=== PATIENT | female | born 1955 | race Caucasian/White ===

== ENCOUNTER 2017-03-04 08:27 | Day surgery (SDC) | payer MEDICARE, OTHER ==
[2017-03-02 14:38] LABS: BASOPHILS 0.4 %; BASOPHILS ABSOLUTE 0.03 10/3/uL (0.0-0.16); EOSINOPHILS 3.6 %; EOSINOPHILS ABSOLUTE 0.25 10/3/uL (0.0-0.53); HEMATOCRIT 36.4 % (36.0-48.0); HEMOGLOBIN 12.1 g/dL (12.0-16.0); IMMATURE GRANULOCYTES 0.3 %; IMMATURE GRANULOCYTES ABSOLUTE 0.02 10/3/uL (0.0-0.11); LYMPHOCYTES 38.6 %; MEAN CORPUS HGB CONC 33.2 g/dL (32.0-36.0); MEAN CORPUSCULAR HEMOGLOB 28.1 pg (26.0-34.0); MEAN CORPUSCULAR VOLUME 84.5 fL (80-100); MEAN PLATELET VOLUME 12.1 fL (9.2-13.0); MONOCYTES 5.6 %; MONOCYTES ABSOLUTE 0.39 10/3/uL (0.21-1.20); NEUTROPHILS 51.5 %; NEUTROPHILS ABSOLUTE 3.61 10/3/uL (2.02-8.40); PLATELET COUNT 237 10/3/uL (150-400); RED CELL COUNT 4.31 10/6/uL (4.0-5.6)
[2017-03-02 14:39] LABS: MANUAL DIFF NO %
[2017-03-02 14:55] LABS: A/G RATIO 0.7 (0.7-1.9); ALBUMIN 3.2 G/DL (3.5-5.0); ALKALINE PHOSPHATASE 123 U/L (45-117); BUN (BLOOD UREA NITROGEN) 16 MG/DL (6-23); CALCIUM, SERUM 9.2 MG/DL (8.5-10.4); CHLORIDE, SERUM 104 MMOL/L (96-112); CO2 (CARBON DIOXIDE) 27 MMOL/L (24-34); CREATININE 0.84 MG/DL (0.55-1.02); GFR AFRICAN AMERICAN 88 ML/MIN (>=60); GFR NON AFRICAN AMERICAN 76 ML/MIN (>=60); GLOBULIN 4.6 G/DL (2.5-4.1); GLUCOSE, SERUM 314 MG/DL (60-99); POTASSIUM, SERUM 3.9 MMOL/L (3.5-5.3); SGOT(AST) 13 U/L (5-40); SGPT(ALT) 23 U/L (5-65); SODIUM, SERUM 140 MMOL/L (135-148); TOTAL BILIRUBIN 0.3 MG/DL (0-1.2); TOTAL PROTEIN 7.8 G/DL (6.0-8.5)
--- NOTE | ~2017-03-04 | OP ---
Record Of Operation [facility] [address] [place]. [address] NAME: LESLI JARRELL : 57 STATUS : [facility]#: [id number] AGE: 61 ADM/REG DATE : 03/04/17 MR#: [id number] REPORT SERV DATE: 03/04/17 DICTATED BY: CARLY PICHARDO DATE: 03/04/17 REPORT STATUS : Draft TRANSCRIBED BY: ROSEMARY DATE: 03/04/17 DATE OF PROCEDURE: PREOPERATIVE DIAGNOSIS: Right breast HER2 positive breast cancer. POSTOPERATIVE DIAGNOSIS: Right breast HER2 positive breast cancer. PROCEDURE: 1. Placement of a chest wall venous port, internal jugular access. 2. Intraoperative fluoroscopy with interpretation. 3. Intraoperative ultrasound for vein access. INDICATION FOR THE PROCEDURE: Ms. Jarrell is a 61-year-old female, who had very significant history of Crohn's disease requiring ostomy. She has been on immune modulators for that Crohn's disease. She was recently diagnosed in my office with a large 4 cm HER2 positive breast cancer in the right upper outer quadrant. She is a candidate for neoadjuvant chemotherapy which is planned and a port will need to be placed. OPERATIVE FINDINGS: After appropriate consent was noted on the chart, the patient was taken to the operating room in supine position. She was placed under monitored anesthesia without complication. The bilateral chest wall and neck were prepped and draped in sterile fashion. A draped ultrasound was placed in the left neck. Left internal jugular vein was noted in its normal anatomic position. It was quite small for the patient's size, but patent. Local anesthetic was infiltrated in the skin and soft tissue overlying the vein, and the vein was accessed with a single pass of the Seldinger needle. The wire would not pass as the vein collapsed, with the patient is breathing. With multiple attempts, I was still unable to get significant passing of the wire through this vein. The left internal jugular access was aborted. The left subclavian access was attempted, I never could get a good flow with the left subclavian vein for access. At this point, I decided to go to the right side, although, this would be our second option as the cancer is on the right side. I do not have other options, so, the right side will be utilized. Ultrasound was placed in the right neck. The right internal jugular vein was large and patent, and should be easily accessed. The skin was locally anesthetized and the vein accessed with a single pass of the Seldinger needle. Nonpulsatile venous appearing blood was noted in the syringe. The wire passed with ease and the needle removed once fluoroscopy noted the wire to be in good position in the vena cava. The wire was secured to the drapes for later use. The port pocket was created by using a #15 blade to make the incision. Bovie cauterization was utilized to make the port pocket. Stay sutures were placed at the 3 o'clock and 9 o'clock position with Prolene. The sutures were secured for later use. An #11 blade was utilized to lengthen the access site in the neck. The tunneling device was utilized to create the new tunnel from the port site to the access site, and the catheter was pulled through. The vein was dilated, placing the dilator and tear-away sheath over the wire with constant movement of the wire the vein was dilated. The dilator and wire were removed from the sheath leaving the sheath in the vein. The catheter was placed into the sheath, the sheath torn away without problem. The catheter was pulled back to the atriocaval junction using fluoroscopy, it was then cut to length, and secured to the port pocket. This was performed with the securing device. The Record Of Operation [facility] [address] [facility] [place]. [address] NAME: LESLI JARRELL : 57 STATUS : [facility] PAT#: [id number] AGE: 61 ADM/REG DATE : 03/04/17 MR#: [id number] REPORT SERV DATE: 03/04/17 DICTATED BY: CARLY PICHARDO DATE: 03/04/17 REPORT STATUS : Draft TRANSCRIBED BY: MODL DATE: 03/04/17 port was noted to aspirate and flush with ease. It was packed with heparinized saline. The port was then secured with two stay sutures and placed in the port pocket. A final shot of fluoroscopy noted the port to be in good position with no kinks or tethering of the line. No obvious sign of any issue. The wound was copiously irrigated with warm saline and hemostasis was achieved. It was then closed in two layers of Monocryl. The komal in the neck was reapproximated with a buried 4-0 suture. The skin was cleansed and dried. Mastisol and Steri-Strips were applied. Telfa and Tegaderm overlaid. The patient was awoken from anesthesia without complication and taken the PACU in stable condition for recovery. All counts were correct at the end of the case. ESTIMATED BLOOD LOSS: 35 mL. COMPLICATIONS: Inability to access usable vein on the left side. JORGE/ROSEMARY Carly Pichardo MD / [id number] CC: MD Jorge Rouse M.D. Bladimir Buckley III, M.D. Richie Gold M.D. [facility]
[~2017-03-04 08:27] MED LIST: ASAB PO; ASAEC PO; BENTYL10 PO; CANASA1SUP PR; DEXILANT PO; DEXILENT PO; KAPIDEX60 MG PO; LOM PO; MYRBETRIQ 25 MG; NITROSTAT0.4 MG SL; NORCO1 TA1 PO; PENTASA500 MG PO; PROTONIX PO; REMICADE IV; TOF25 PO; TOVIAZ4 MG PO; VITAMIN D400 UNI1 PO; VITD PO; VYTORIN 10/40 T1 TAB PO; WELL75 PO; WELLSR100 PO; WELLSR150 PO; ZANTAC150 MG PO
[2017-08-20] MEDS ORDERED: NEUR300 PO (12:08)
[2017-08-20] MEDS ORDERED: ELIQUIS 5 MG TAB5 MG PO (12:09)
[2017-08-20] MEDS ORDERED: CYMBALTA30 PO (12:10)
== END 2017-03-04 16:20 | disposition home or self-care (01) ==
LOC: SDC 08:27
PROVIDERS: Surgery Surgical Oncology
PROC: 0JH63XZ Insertion of Tunneled Vascular Access Device into Chest Subcutaneous Tissue and Fascia, Percutaneous Approach (ICD-10-PCS; principal; 2017-03-04 10:00)
DX: C50.911 Malignant neoplasm of unspecified site of right female breast (principal); K50.90 Crohn's disease, unspecified, without complications; Z98.890 Other specified postprocedural states; G47.33 Obstructive sleep apnea (adult) (pediatric); E11.9 Type 2 diabetes mellitus without complications; F41.9 Anxiety disorder, unspecified; E66.01 Morbid (severe) obesity due to excess calories; Z88.2 Allergy status to sulfonamides; Z87.442 Personal history of urinary calculi
CPT/HCPCS: 71010; 71020; 77001; 80053; 82962; 85025; 93005; A9270-GY; C1751; C1892; J0690; J2250; J3010

== ENCOUNTER 2017-04-24 10:13 | Inpatient (IN) | payer MEDICARE, OTHER ==
--- NOTE | ~2017-04-24 | CN ---
Consultation Report [facility] [address] [place]. [address] NAME: LESLI PERES : 57 STATUS : ADM IN PAT#: [id number] AGE: 61 ADM/REG DATE : 04/24/17 MR#: [id number] REPORT SERV DATE: 04/27/17 DICTATED BY: MATEO SANCHEZ DATE: 04/27/17 REPORT STATUS : Draft TRANSCRIBED BY: ROSEMARY DATE: 04/27/17 PSYCHIATRIC CONSULTATION DATE OF CONSULTATION: 04/27/2017 I reviewed the patient's current and old medical records. HISTORY OF PRESENT ILLNESS: She was admitted with generalized weakness. I was consulted to address depression issues. PAST PSYCHIATRIC HISTORY: She described mild situational depression on and off over the years, which she attributed to a difficult marriage. She is currently worried about her indebtedness, our impractical house, relationship issues with her daughter, and accumulating medical problems. SOCIAL HISTORY: She has been for about five years. She has three children. The child who is closest to her lives about 10 miles away. She has severe financial concerns. She needs help in completing an application for Medicaid. MENTAL STATUS: She was pleasant and cooperative in attitude. She spoke freely about her issues. Her mood was anxious and dysphoric. Her affect was full and appropriate. Her thinking was logical. She had no delusions. She had no hallucinations. She was oriented to time, place, and person. She displayed good recent and remote memory. DIAGNOSIS: Depressive disorder, not otherwise specified. There appears to be a major reactive element in her depression. RECOMMENDATIONS: I agree with Cymbalta 30 mg p.o. daily. I will request help from case management rn and/or delinquency prevention social worker to address some of her financial and housing concerns and perhaps to help her with her application for Medicaid assistance. I will sign off. ALYSE/ROSEMARY Mateo Sanchez M.D. / [id number] CC: MD Jorge Blackburn II, M.D.
--- NOTE | ~2017-04-24 | CN ---
Consultation Report [facility] [address] [place]. [address] NAME: LESIL PERES : 57 STATUS : ADM IN PAT#: [id number] AGE: 61 ADM/REG DATE : 04/24/17 MR#: [id number] REPORT SERV DATE: 04/28/17 DICTATED BY: JEROD NEIL DATE: 04/28/17 REPORT STATUS : Draft TRANSCRIBED BY: MODL DATE: 04/28/17 CRITICAL CARE CONSULT DATE OF CONSULTATION: 04/28/2017 HISTORY OF PRESENT ILLNESS: The patient is a 61-year-old white female who was admitted to the hospital for generalized weakness, failure to thrive. She started recent treatment for breast cancer with chemotherapy agents and antibody agents. The patient has had a port placed within the past few days in the right internal jugular vein. Tonight, she became somewhat short of breath and hypotensive. A stat CTA was done to rule out dissection and pericardial effusion and instead revealed bilateral pulmonary emboli, a large nonocclusive, in a saddle position. Her saturation had dropped. Her heart rate increased and blood pressures in the 70s. She was transferred to CCU. She had been started on heparin just about an hour ago. I was asked to see her. When I arrived, the patient was awake and responsive. Pale in appearance. However, she was short of breath. Blood pressure was 70/60, pulse rate was 112 to 118. She was getting IV volume and saline. The CTA revealed the followin. It had opacified pulmonary arteries and veins, large burden of acute pulmonary emboli with nonobstructive saddle embolus at the main pulmonary artery bifurcation, near obstructing thrombus in the right main descending pulmonary artery extending into the lobar and segmental pulmonary arteries. 2. Nonobstructing lobar and segmental pulmonary emboli at right upper lobe. 3. Nonobstructing thrombus, proximal right middle lobe pulmonary artery. 4. Nonobstructing pulmonary emboli, left descending pulmonary artery extending several segmental pulmonary arteries. No significant blood identified in the left upper lobe. Normal caliber and contour thoracic aortic node dissection, aneurysm, no mediastinal hemorrhage or abnormal fluid, no mediastinal hilar or axillary supraclavicular adenopathy. No pericardial effusion. There is evidence of mild right ventricular dilatation, no leftward bowing of the septum, no enlargement of pulmonary artery. No chest wall mass. No suspicious bone lesion. Lung windows show no suspicious pulmonary nodules, focal infiltrate, mediastinum, or pneumothorax. No endobronchial lesions. Limited images through upper abdomen show unremarkable visualized portions of upper liver spleen, upper pancreas, upper adrenal glands, large gallstone or gallbladder, no gallbladder inflammatory changes. The patient had a brain CT without contrast on 04/24/2017 which demonstrated no acute infarct or hemorrhage, mild atrophy, and chronic white matter gliosis. The patient's past medical history is significant for recent diagnosis of QNG-5-orkexiaz breast cancer started by Fabian, chemotherapy. Type 2 diabetes mellitus, Crohn disease, rectovaginal fistula, colostomy due to rectovaginal fistula, significant for colostomy, and past surgical history is significant for scheduled to have breast cancer surgery once her chemotherapy is complete. She is allergic to Benadryl sulfa. HOME MEDICATIONS: Include Dexilant 60 mg with breakfast, Bentyl 10 mg four times 0 day, Lomotil four times a day, metformin 500 twice daily, Neulasta 6 mg subcu every 21 days, Consultation Report [address] [address] NAME: LESLI PERES : 57 STATUS : ADM IN PAT#: [id number] AGE: 61 ADM/REG DATE : 04/24/17 MR#: [id number] REPORT SERV DATE: 04/28/17 DICTATED BY: JEROD NEIL DATE: 04/28/17 REPORT STATUS : Draft TRANSCRIBED BY: MODDiana DATE: 04/28/17 Compazine 10 mg q.6h p.r.n. for nausea, Zantac 150 twice a day, and pertuzumab per Dr. Larson. SOCIAL HISTORY: No use of alcohol, tobacco, or illicit substances. FAMILY HISTORY: Positive for sister with breast cancer, at 58. Genetic testing for breast cancer was negative in the patient. PHYSICAL EXAMINATION: GENERAL: On examination, patient is pale in appearance, elderly female, looking older than stated age. She is awake, alert, and oriented. HEENT: Head is normocephalic. Sclerae and conjunctivae clear. Oral mucosa appears to be normal. No JVD is reported in the right internal jugular vein with the port on the chest wall. CARDIAC EXAM: S1, S2. Tachycardic. No murmurs. ABDOMEN: Soft and nontender. No masses. Colostomy is in place. EXTREMITIES: Slight edema. No clubbing. NEUROLOGIC: Cranial nerves 2 through 12 are intact. Deep tendon reflexes appear to be normal. The patient continues to be hypotensive and I have reviewed with her the indications, complications, possible side effects including hemorrhage into the brain, and treatment with tPA. She meets all criteria for treatment of tPA, the main one being sudden hypoxemia requiring increased amounts of oxygen and hypotension with the significant tachycardia. I will proceed with this. The patient has had a hospital psychiatric evaluation for depression and was placed on Cymbalta. I am attempting to contact her family to inform them of the same. EKG shows sinus tachycardia. She did have an elevated troponin of 1.59, CPK was 130. IMPRESSION: Saddle pulmonary embolism, not totally occlusive, with marked hypotension and tachycardia. The patient needs indication for tPA administration. Risks and benefits have been explained and understood and accepted by the patient. Attempts were made to reach her family. This has been approximately 45 minutes of critical care time. HARRISON/ROSEMARY Jerod Neil M.D. / [id number] Consultation Report [address] [address] NAME: LESLI PERES : 57 STATUS : ADM IN [facility]#: [id number] AGE: 61 ADM/REG DATE : 04/24/17 MR#: [id number] REPORT SERV DATE: 04/28/17 DICTATED BY: JEROD NEIL DATE: 04/28/17 REPORT STATUS : Draft TRANSCRIBED BY: MODL DATE: 04/28/17 CC: Loc Duncan MD
--- NOTE | ~2017-04-24 | DS ---
Discharge Summary [facility] [address] [place]. [address] NAME: LESLI PERES : 57 STATUS : ADM IN PAT#: [id number] AGE: 61 ADM/REG DATE : 04/24/17 MR#: [id number] REPORT SERV DATE: 05/01/17 DICTATED BY: LEONEL JENSEN DATE: 05/01/17 REPORT STATUS : Draft TRANSCRIBED BY: MODDiana DATE: 05/01/17 ADMISSION DATE: 04/24/2017 DISCHARGE DATE: 05/01/2017 DISCHARGE DIAGNOSES: 1. Bilateral massive pulmonary embolisms. 2. Uncontrolled type 2 diabetes mellitus. 3. Demand ischemia, now resolved. 4. Generalized debility. 5. Breast cancer. 6. Gastroesophageal reflux. 7. Chronic pain syndrome. CONSULTANTS DURING THIS HOSPITALIZATION: 1. Dr. Huseyin Larson of Hematology Oncology. 2. Critical Care Medicine. INVASIVE PROCEDURES DONE DURING THIS HOSPITALIZATION: None. BRIEF HISTORY OF PRESENT ILLNESS: The patient is a 61-year-old female, presented initially to [facility] Emergency Room for generalized weakness and failure to thrive. Please refer to my admitting H and P done on 04/24/2017. HOSPITAL COURSE: After being admitted to the hospital, this patient apparently was doing well and then suddenly had massive bilateral pulmonary embolisms with elevated troponin. Cardiology saw the patient in consultation, recommended a CTA. CTA was done, which showed massive pulmonary embolism. The patient became hypotensive, had to be transferred to the intensive care unit. Please refer to interim summary dictated by Dr. Mino Carlos after transfer. This patient has remained stable. We have weaned her off her oxygen. She is currently on Eliquis for bilateral pulmonary embolisms. Her chemo will be suspended while she is in rehab. All other parameters remained stable and she is ready for rehab. DISCHARGE DISPOSITION: To rehab. DISCHARGE ACTIVITY: Per facility. DISCHARGE DIET: Low sodium, 1800-calorie [employer] diet. DISCHARGE MEDICATIONS: Bentyl 10 mg four times daily; Eliquis 10 mg twice daily for seven days and then 5 mg twice daily; Dexilant 60 mg p.o. before breakfast; metformin 500 mg twice daily; pertuzumab per Dr. Larson after rehab; Zantac 150 mg twice daily; Neulasta 6 mg subcu every [address] Larson to be suspended while in rehab; Decadron 8 mg p.o. b.i.d., three days before chemotherapy to be suspended until rehab is complete. DISCHARGE FOLLOWUP: With Dr. Huseyin Larson post rehab, with Dr. Jorge Jacques post rehab. Discharge Summary [place] [address] [place] [address] NAME: LESLI PERES : 57 STATUS : ADM IN PAT#: [id number] AGE: 61 ADM/REG DATE : 04/24/17 MR#: [id number] REPORT SERV DATE: 05/01/17 DICTATED BY: LEONEL JENSEN DATE: 05/01/17 REPORT STATUS : Draft TRANSCRIBED BY: ROSEMARY DATE: 05/01/17 More than 30 minutes spent planning this patient's discharge, reconciling medications, discussing hospital care with the patient as well as with Dr. Carlton over the phone, and documenting this discharge. DICTATED BY: Bladimir aDley/ROSEMARY Leonel Jensen M.D. / [id number] CC: Bladimir Daley M.D. Bertrand Marquess Anz III, M.D.
--- NOTE | ~2017-04-24 | CN ---
Consultation Report [facility] [address] [place]. [address] NAME: LESLI PERES : 57 STATUS : ADM IN PAT#: [id number] AGE: 61 ADM/REG DATE : 04/24/17 MR#: [id number] REPORT SERV DATE: 04/28/17 DICTATED BY: KADIE SHELTON DATE: 04/27/17 REPORT STATUS : Draft TRANSCRIBED BY: MODDiana DATE: 04/27/17 CARDIOLOGY CONSULTATION DATE OF CONSULTATION: HISTORY OF PRESENT ILLNESS: This 61-year-old white female with breast cancer on chemotherapy by Dr. Larson had failure to thrive and weakness for which she was brought to the emergency room. She lives alone in a three-claudia home and is looked in on by some neighbors on occasion. While here, she has developed some chest discomfort that is worsened by deep breath and lying flat. She has had no hemoptysis, chills, or fever and denies any leg pain. Other problems include Crohn disease, for which, she has had a colostomy placed. She has been overweight for many years. She is a type 2 diabetic. Previous surgeries besides the colostomy are negative. She is intolerant to Benadryl and sulfa drugs. HOME MEDICATIONS: Have included cephalexin antibiotic therapy, dexamethasone, Dexilant, Bentyl, Lomotil, metformin, Compazine, and Zantac. She gets Neulasta 6 mg subcu every 21 days. She does not use alcohol, tobacco, or illicit substances. FAMILY HISTORY: Positive for breast cancer. At the present time, she is not short of breath but does complain of chest discomfort, a bit worsened on deep breath. She is not syncopal or near syncopal, but apparently, had a vagal reaction earlier in the day. Her EKG shows mild sinus tachycardia with nonspecific ST-T wave change. Troponin was initially less than 0.02 but is now 1.59, BUN is 27, creatinine 1.13. Blood sugar at random is 150 mg%. White blood cell count 5900, hematocrit 28%, and platelet count 220,000, on chemotherapy. PHYSICAL EXAMINATION: VITAL SIGNS: Blood pressure 130/70 without palpable paradox. HEENT: Head is normocephalic except for alopecia and absence of eyebrows, probably from chemotherapy. NOSE: No epistaxis. SKIN: Otherwise clear of ulceration. NECK: Supple. No jugular venous distention was seen. LUNGS: Relatively clear. I hear no wheezes, rales, or rhonchi. HEART: Regular rhythm. Normal S1, S2. I do not hear an S3 gallop. ABDOMEN: Obese and nontender. Colostomy bag is present in the left lower quadrant. EXTREMITIES: Had no clubbing, edema, or cyanosis. NEUROLOGIC EXAM: Intact. She is oriented to time, place, and person. CLINICAL IMPRESSION: 1. Pleuritic chest pain - rule out pericardial effusion or pulmonary embolism; mild troponin elevation without ST elevation on EKG such that ischemic cardiac event cannot be excluded. 2. Cancer of the breast - on chemotherapy. Consultation Report [address] [place]. [address] NAME: LESLI PERES : 57 STATUS : ADM IN [facility]#: [id number] AGE: 61 ADM/REG DATE : 04/24/17 MR#: [id number] REPORT SERV DATE: 04/28/17 DICTATED BY: KADIE SHELTON DATE: 04/27/17 REPORT STATUS : Draft TRANSCRIBED BY: ROSEMARY DATE: 04/27/17 3. History of Crohn disease with colostomy. 4. History of type 2 diabetes mellitus. 5. Depression - has seen Psychiatry. RECOMMENDATIONS: 1. We will check a spiral CT of the chest with contrast tonight to look at the pericardium, rule out pulmonary embolism or dissection of the aorta. 2. Echocardiogram with Doppler. 3. If the above proved to be negative, she might be a candidate for cardiac catheterization and possible PCI should she wish to pursue that approach. Further recommendations to follow results of above studies. 4. We will hold the heparin until dissection and pericardial effusion have been ruled out by CTA. RB/ROSEMARY Kadie Shelton M.D. / [id number] CC: MD Jorge Blackburn II, M.D.
--- NOTE | ~2017-04-24 | IDS ---
Interim Discharge Summary [facility] [address] [place]. [address] NAME: LESLI PERES : 57 STATUS : ADM IN PAT#: [id number] AGE: 61 ADM/REG DATE : 04/24/17 MR#: [id number] REPORT SERV DATE: 04/29/17 DICTATED BY: WILI CARLOS IV DATE: 04/29/17 REPORT STATUS : Draft TRANSCRIBED BY: ROSEMARY DATE: 04/29/17 ADMISSION DATE: 04/24/2017 DISCHARGE DATE: DATE OF TRANSFER TO THE ICU: 04/28/2017. DATE OF TRANSFER BACK TO THE FLOOR: 04/29/2017. ADMITTING DIAGNOSES: 1. Large-volume pulmonary embolism, clinically improved. 2. Breast cancer. 3. Electrolyte abnormalities being corrected. 4. Diabetes mellitus with consult to ems educator with resumption of metformin and insulin sliding scale. 5. Thrombocytopenia, heparin-induced thrombocytopenia panel sent, though this may be chemotherapy related. 6. Iron deficiency, started on iron. 7. Crohn disease with colostomy. CONSULTANTS: No additional consultants after transfer to the ICU. PROCEDURES: The patient underwent an ultrasound of the bilateral lower extremities on 04/28/2017 demonstrating left popliteal clot. The patient underwent echocardiogram on 04/28/2017 demonstrating ejection fraction of 50% with right ventricular enlargement and general hypokinesis with [id number] tricuspid regurgitation and estimated right ventricular systolic pressure of 31. MEDICATIONS: Include Bentyl 10 mg with meals and at bedtime, Cymbalta 30 mg daily, Neurontin 100 mg three times a day, level 3 insulin sliding scale, Protonix 40 mg daily, multivitamin daily, iron 300 mg daily, and Eliquis 10 mg twice a day. HOSPITAL COURSE: The patient was transferred from the hospitalist service to the ICU on 04/28/[address]ogram demonstrated large-volume pulmonary embolism. The patient was hypoxemic and mildly hypotensive at that time. The patient never required vasopressor therapy. She was given tPA because of her mixed disease with clinical improvement. The patient was subsequently placed on a heparin drip which was continued until she was transitioned to Eliquis today. The patient had rapid improvement and currently is not requiring supplemental oxygen and is hemodynamically stable. She has noted marked clinical improvement with less short of breath and resolution of her previous chest discomfort. The patient had multiple electrolyte abnormalities, which are being corrected to include potassium, magnesium, and phos. The patient had marked hyperglycemia with an elevated hemoglobin A1c. She was restarted on metformin, though will likely need medication adjustments. She is on insulin sliding scale. We have asked ems educator to see the patient. The patient will remain on Cymbalta for her depression. She did have thrombocytopenia with HIT panel pending, though this may be chemotherapy related. I felt that she was stable for transfer back to the floor. We will ask the Hospitalist Service to Interim Discharge Summary [address] [place]. [address] NAME: LESLI PERES : 57 STATUS : ADM IN PAT#: [id number] AGE: 61 ADM/REG DATE : 04/24/17 MR#: [id number] REPORT SERV DATE: 04/29/17 DICTATED BY: WILI CARLOS IV DATE: 04/29/17 REPORT STATUS : Draft TRANSCRIBED BY: ROSEMARY DATE: 04/29/17 resume primary responsibility. NICOLE/ROSEMARY Wili Carlos IV, M.D. / [id number] CC: MD Jorge Costa M.D.
--- NOTE | ~2017-04-24 | HP ---
History And Physical [id number] [facility] [place]. [address] NAME: LESLI PERES : 57 STATUS : ADM IN PAT#: [id number] AGE: 61 ADM/REG DATE : 04/24/17 MR#: [id number] REPORT SERV DATE: 04/24/17 DICTATED BY: LEONEL JENSEN DATE: 04/24/17 REPORT STATUS : Draft TRANSCRIBED BY: ROSEMARY DATE: 04/24/17 DATE OF ADMISSION: 04/24/2017 CHIEF COMPLAINT: Weakness. HISTORY OF PRESENT ILLNESS: The patient 61-year-old white female, diagnosed with breast cancer, nonmetastatic, HER2 positive followed by Dr. Marquess Larson on chemotherapy. Recently received chemotherapy round #2 and since then has become progressively weak. Lives in a three-story home. Lives usually upstairs. The kitchen is on the main floor. Then patient actually activated EMS in the middle of the night around 1:45 to 3 o'clock asking that she cannot get to her food. There are multiple social issues where there are family members, but significant issues with having to live with them or having some problems with assistance. This patient says that because she cannot move, she is not able to get out of bed. She felt like she was going to of starvation in her own bed. She has no appetite. She feels that she would be better off if she . She has not thought of any suicide. She denies any chest pain, nausea, vomiting, shortness of breath. She has chronic Crohn disease and has diarrhea and uses multiple antidiarrheal agents for that. She was brought to the emergency room. Workup in the ER was fairly unremarkable, however, because of her social situation and concerns for safety of discharge, she had been referred to the Hospitalist Service for further treatment and evaluation. REVIEW OF SYSTEMS: A 10-point review of systems was otherwise negative. 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 PAST SURGICAL HISTORY: Significant for colostomy. She is scheduled or supposedly to have breast cancer once her chemotherapy is complete. ALLERGIES: BENADRYL AND SULFA. HOME MEDICATIONS: Cephalexin 500 mg every eight hours, dexamethasone 8 mg twice daily for three days prior to starting chemo, Dexilant 60 mg once at breakfast, Bentyl 10 mg four times daily, Lomotil 5 mg four times daily p.r.n., metformin 500 mg twice daily, Neulasta 6 mg subcu every 21 days, Compazine 10 mg q.6 p.r.n. for nausea, Zantac 150 mg twice daily, pertuzumab ongoing per Dr. Larson. SOCIAL HISTORY: No use of alcohol, tobacco, or illicit substances. FAMILY HISTORY: Sister with breast cancer who at the age of 58. Genetic testing for breast cancer in the patient was negative. PHYSICAL EXAMINATION: GENERAL: White female, appears older than the stated age. Lying on the bed, appears to be History And Physical [address] [address] NAME: LESLI PERES : 57 STATUS : ADM IN PAT#: [id number] AGE: 61 ADM/REG DATE : 04/24/17 MR#: [id number] REPORT SERV DATE: 04/24/17 DICTATED BY: LEONEL JENSEN DATE: 04/24/17 REPORT STATUS : Draft TRANSCRIBED BY: ROSEMARY DATE: 04/24/17 in no respiratory distress. She is awake, alert. She is oriented. VITAL SIGNS: Upon arrival to the emergency room, blood pressure was 130/48, temperature was 98.2, pulse is 89, saturation of 98%. HEENT: Head is normocephalic, atraumatic. Pupils are equal, round, and reactive to light. Extraocular muscles are intact. Sclerae anicteric. Conjunctivae are normal. Oropharynx without lesion. Tongue protrudes in midline. Uvula midline. NECK: Supple. No jugular venous distention. No carotid bruits or thyromegaly is appreciated. No lymphadenopathy in the neck is palpable. HEART: Regular rate and rhythm. No murmurs, rubs, or gallops are heard. PMI nondisplaced. LUNGS: Clear to auscultation both anteriorly and posteriorly without rales, rhonchi, wheezing, or consolidation. ABDOMEN: Morbidly obese, soft, nontender, good bowel sounds. EXTREMITIES: Without cyanosis, clubbing, or edema. NEUROLOGIC: Strength is equal and symmetrical in both upper and lower extremities. Deep tendon reflexes are present and normal. LABORATORY DATA: White count is 8.3, hemoglobin of 11.4, hematocrit 32.1, platelet count is 262,000. Sodium 141, potassium 3.1, chloride 108, bicarb 24, BUN 35, creatinine 1.45, glucose of 179. Fingerstick blood glucose was 210. Urinalysis was fairly unremarkable. CPK was 17, troponin was less than 0.02. PT is 15.1, INR 1.2, PTT was 23. Total bilirubin of 0.4, alkaline phosphatase 169, ALT 87, AST 30. Leukocytes and nitrites were negative in the urine. Chest x-ray, no acute disease. EKG, normal sinus rhythm, low voltage, nonspecific T-wave abnormalities. IMPRESSION: 1. Failure to thrive. 2. Debility. 3. Breast cancer with the HER2 positive on active chemo. 4. Type 2 diabetes mellitus. 5. Crohn disease with rectovaginal fistula and colostomy. 6. Colostomy due to #5. PLAN: The patient will be admitted. PT evaluation will be ordered. IV fluids will be given. Case management consultation will be obtained. Home medications have been addressed. I will discontinue metformin at this time as this will add further to the diarrhea. We will start her on a level 2 sliding scale. Hold Lomotil. Start patient on Cymbalta 30 mg once daily. Obtain a psychiatry consultation for further treatment of her depression. Patient remains a full code. NAUN/ROSEMARY Leonel Jensen M.D. / [id number] History And Physical [address] [address] NAME: LESLI PERES : 57 STATUS : ADM IN [facility]#: [id number] AGE: 61 ADM/REG DATE : 04/24/17 MR#: [id number] REPORT SERV DATE: 04/24/17 DICTATED BY: LEONEL JENSEN DATE: 04/24/17 REPORT STATUS : Draft TRANSCRIBED BY: ROSEMARY DATE: 04/24/17 CC: MD Jorge Blackburn II, M.D. Mitchel Larson III, M.D.
[2017-04-24 10:10] LABS: BASOPHILS 0 %; EOSINOPHILS 0 %; HEMOGLOBIN 11.4 g/dL (12.0-16.0); IMMATURE GRANULOCYTES 0.2 %; IMMATURE GRANULOCYTES ABSOLUTE 0.02 10/3/uL (0.0-0.11); LYMPHOCYTES 33.8 %; MEAN CORPUSCULAR HEMOGLOB 29.3 pg (26.0-34.0); MEAN CORPUSCULAR VOLUME 82.5 fL (80-100); MEAN PLATELET VOLUME 10.9 fL (9.2-13.0); MONOCYTES 11.5 %; MONOCYTES ABSOLUTE 0.95 10/3/uL (0.21-1.20); NEUTROPHILS 54.5 %; NEUTROPHILS ABSOLUTE 4.51 10/3/uL (2.02-8.40); PLATELET COUNT 262 10/3/uL (150-400); RBC DISTRIBUTION WIDTH 15.9 % (12.0-16.0); RED CELL COUNT 3.89 10/6/uL (4.0-5.6); WHITE BLOOD CELLS 8.3 10/3/uL (4.5-10.5)
[2017-04-24 10:12] LABS: HEMATOCRIT 32.1 % (36.0-48.0); MANUAL DIFF NO %; MEAN CORPUS HGB CONC 35.5 g/dL (32.0-36.0)
[2017-04-24 10:24] LABS: A/G RATIO 0.9 (0.7-1.9); ALBUMIN 3.4 G/DL (3.5-5.0); CALCIUM, SERUM 9.8 MG/DL (8.5-10.4); CHLORIDE, SERUM 108 MMOL/L (96-112); CO2 (CARBON DIOXIDE) 24 MMOL/L (24-34); GLOBULIN 3.7 G/DL (2.5-4.1); SGOT(AST) 30 U/L (5-40); SGPT(ALT) 87 U/L (5-65); SODIUM, SERUM 141 MMOL/L (135-148); TOTAL BILIRUBIN 0.4 MG/DL (0-1.2); TOTAL PROTEIN 7.1 G/DL (6.0-8.5)
[2017-04-24 10:26] LABS: ALKALINE PHOSPHATASE 169 U/L (45-117); BUN (BLOOD UREA NITROGEN) 35 MG/DL (6-23); CREATININE 1.45 MG/DL (0.55-1.02); GFR AFRICAN AMERICAN 45 ML/MIN (>=60); GFR NON AFRICAN AMERICAN 39 ML/MIN (>=60); GLUCOSE, SERUM 179 MG/DL (60-99); POTASSIUM, SERUM 3.1 MMOL/L (3.5-5.3)
[2017-04-24 10:40] LABS: INTERNATIONAL NORMAL RATI 1.2 UNITS (-); PARTIAL THROMBO TIME 23.6 SEC (22.5-37.2); PROTIME (NOT ORD) 15.1 SEC (12.0-14.5)
[2017-04-24 10:50] LABS: ASCORBIC ACID (UR NOT ORDER) NEG (NEG); BILIRUBIN, URINE NEGATIVE (NEG); CPK 17 U/L (0-200); KETONE, URINE NEGATIVE (NEG); LEUKOCYTE ESTERASE(NOT OR NEG (NEG); NITRITE (URINE) NEG (NEG); TROPONIN I <0.02 NG/ML (<0.05); WBC (NOT ORDERED) (RFLEX) 5 (0-5)
[2017-04-24 10:52] LABS: ER URINALYSIS TAT 0 Hrs 31 Mins
[2017-04-24] MEDS ORDERED: BENTYL10 PO (11:47)
[2017-04-24] MEDS ORDERED: [UNRECOGNIZED DRUG - OTHER] (11:47)
[2017-04-24] MEDS ORDERED: HERCEPTIN (11:48)
[2017-04-24] MEDS ORDERED: GLUCPH PO (11:48)
[2017-04-24] MEDS ORDERED: ZANTAC150 MG PO (11:49)
[2017-04-24] MEDS ORDERED: COMP10B PO (11:51)
[2017-04-24] MEDS ORDERED: K500 PO (11:54)
[2017-04-24] MEDS ORDERED: NEULASTA SC (11:54)
[2017-04-24] MEDS ORDERED: LOM PO (11:54)
[2017-04-24] MEDS ORDERED: KAPIDEX60 MG PO (11:55)
[2017-04-24] MEDS ORDERED: DEX4 PO (11:56)
[2017-04-25 04:57] LABS: BASOPHILS 0 %; EOSINOPHILS 0 %; HEMATOCRIT 27.9 % (36.0-48.0); HEMOGLOBIN 9.7 g/dL (12.0-16.0); IMMATURE GRANULOCYTES 0.2 %; IMMATURE GRANULOCYTES ABSOLUTE 0.01 10/3/uL (0.0-0.11); LYMPHOCYTES 48.4 %; LYMPHOCYTES ABSOLUTE 2.83 10/3/uL (0.67-4.30); MANUAL DIFF NO %; MEAN CORPUS HGB CONC 34.8 g/dL (32.0-36.0); MEAN CORPUSCULAR HEMOGLOB 29.1 pg (26.0-34.0); MEAN CORPUSCULAR VOLUME 83.8 fL (80-100); MEAN PLATELET VOLUME 10.8 fL (9.2-13.0); MONOCYTES 10.3 %; NEUTROPHILS 41.1 %; NEUTROPHILS ABSOLUTE 2.41 10/3/uL (2.02-8.40); PLATELET COUNT 220 10/3/uL (150-400); RBC DISTRIBUTION WIDTH 16.3 % (12.0-16.0); RED CELL COUNT 3.33 10/6/uL (4.0-5.6); WHITE BLOOD CELLS 5.9 10/3/uL (4.5-10.5)
[2017-04-25 05:08] LABS: ALBUMIN 2.9 G/DL (3.5-5.0); CHLORIDE, SERUM 112 MMOL/L (96-112); CO2 (CARBON DIOXIDE) 24 MMOL/L (24-34); CREATININE 1.13 MG/DL (0.55-1.02); GFR AFRICAN AMERICAN 61 ML/MIN (>=60); GFR NON AFRICAN AMERICAN 53 ML/MIN (>=60); GLUCOSE, SERUM 150 MG/DL (60-99); PHOSPHORUS, SERUM 2.9 MG/DL (2.5-4.5); POTASSIUM, SERUM 3.3 MMOL/L (3.5-5.3); SODIUM, SERUM 144 MMOL/L (135-148)
[2017-04-25 05:09] LABS: BUN (BLOOD UREA NITROGEN) 27 MG/DL (6-23); CALCIUM, SERUM 8.7 MG/DL (8.5-10.4)
[2017-04-26 08:12] LABS: BASOPHILS 0 %; EOSINOPHILS 0.4 %; EOSINOPHILS ABSOLUTE 0.02 10/3/uL (0.0-0.53); HEMATOCRIT 29.6 % (36.0-48.0); HEMOGLOBIN 10.1 g/dL (12.0-16.0); LYMPHOCYTES 47.5 %; LYMPHOCYTES ABSOLUTE 2.12 10/3/uL (0.67-4.30); MEAN CORPUS HGB CONC 34.1 g/dL (32.0-36.0); MEAN CORPUSCULAR HEMOGLOB 28.7 pg (26.0-34.0); MEAN CORPUSCULAR VOLUME 84.1 fL (80-100); MEAN PLATELET VOLUME 10.7 fL (9.2-13.0); MONOCYTES 8.3 %; MONOCYTES ABSOLUTE 0.37 10/3/uL (0.21-1.20); NEUTROPHILS 43.8 %; NEUTROPHILS ABSOLUTE 1.95 10/3/uL (2.02-8.40); PLATELET COUNT 222 10/3/uL (150-400); RBC DISTRIBUTION WIDTH 16.3 % (12.0-16.0); RED CELL COUNT 3.52 10/6/uL (4.0-5.6); WHITE BLOOD CELLS 4.5 10/3/uL (4.5-10.5)
[2017-04-26 08:14] LABS: MANUAL DIFF NO %
[2017-04-26 08:56] LABS: A/G RATIO 0.8 (0.7-1.9); ALBUMIN 2.9 G/DL (3.5-5.0); CALCIUM, SERUM 8.9 MG/DL (8.5-10.4); CHLORIDE, SERUM 111 MMOL/L (96-112); CO2 (CARBON DIOXIDE) 23 MMOL/L (24-34); CREATININE 0.85 MG/DL (0.55-1.02); GFR AFRICAN AMERICAN 86 ML/MIN (>=60); GFR NON AFRICAN AMERICAN 74 ML/MIN (>=60); GLOBULIN 3.6 G/DL (2.5-4.1); GLUCOSE, SERUM 151 MG/DL (60-99); POTASSIUM, SERUM 3.1 MMOL/L (3.5-5.3); SGOT(AST) 31 U/L (5-40); SGPT(ALT) 61 U/L (5-65); SODIUM, SERUM 141 MMOL/L (135-148); TOTAL BILIRUBIN 0.3 MG/DL (0-1.2); TOTAL PROTEIN 6.5 G/DL (6.0-8.5)
[2017-04-26 08:57] LABS: ALKALINE PHOSPHATASE 131 U/L (45-117); BUN (BLOOD UREA NITROGEN) 14 MG/DL (6-23); ULTRASENSITIVE TSH 0.852 MCIU/ML (0.358-3.740)
[2017-04-27 06:15] LABS: BUN (BLOOD UREA NITROGEN) 13 MG/DL (6-23); CALCIUM, SERUM 8.6 MG/DL (8.5-10.4); CHLORIDE, SERUM 111 MMOL/L (96-112); CO2 (CARBON DIOXIDE) 26 MMOL/L (24-34); CREATININE 0.89 MG/DL (0.55-1.02); GFR AFRICAN AMERICAN 82 ML/MIN (>=60); GFR NON AFRICAN AMERICAN 70 ML/MIN (>=60); GLUCOSE, SERUM 138 MG/DL (60-99); POTASSIUM, SERUM 3.2 MMOL/L (3.5-5.3); SODIUM, SERUM 142 MMOL/L (135-148)
[2017-04-27 19:05] LABS: TROPONIN I 1.59 NG/ML (<0.05)
[2017-04-27 20:25] LABS: CK-MB 5.3 NG/ML
[2017-04-27 20:26] LABS: CKMB INDEX (NOT ORD) 4.1
[2017-04-28 02:14] LABS: CALCIUM, SERUM 8.5 MG/DL (8.5-10.4); CHLORIDE, SERUM 110 MMOL/L (96-112); CO2 (CARBON DIOXIDE) 23 MMOL/L (24-34); CPK 127 U/L (0-200); CREATININE 1.22 MG/DL (0.55-1.02); GFR AFRICAN AMERICAN 56 ML/MIN (>=60); GFR NON AFRICAN AMERICAN 48 ML/MIN (>=60); SODIUM, SERUM 141 MMOL/L (135-148)
[2017-04-28 02:15] LABS: BUN (BLOOD UREA NITROGEN) 19 MG/DL (6-23); CK-MB 4.6 NG/ML; GLUCOSE, SERUM 235 MG/DL (60-99); POTASSIUM, SERUM 3.9 MMOL/L (3.5-5.3); TROPONIN I 1.42 NG/ML (<0.05)
[2017-04-28 04:21] LABS: HEMOGLOBIN 11.9 g/dL (12.0-16.0)
[2017-04-28 04:22] LABS: HEMATOCRIT 35.1 % (36.0-48.0)
[2017-04-28 08:32] LABS: CK-MB 4.8 NG/ML; CPK 165 U/L (0-200)
[2017-04-28 09:32] LABS: IRON BINDING CAPACITY 252 MCG/DL (225-410); IRON, SERUM 31 MCG/DL (35-150)
[2017-04-29 02:24] LABS: BASOPHILS 0.1 %; BASOPHILS ABSOLUTE 0.01 10/3/uL (0.0-0.16); EOSINOPHILS 2.4 %; EOSINOPHILS ABSOLUTE 0.22 10/3/uL (0.0-0.53); IMMATURE GRANULOCYTES 0.2 %; IMMATURE GRANULOCYTES ABSOLUTE 0.02 10/3/uL (0.0-0.11); LYMPHOCYTES 29.6 %; LYMPHOCYTES ABSOLUTE 2.69 10/3/uL (0.67-4.30); MEAN CORPUS HGB CONC 34.4 g/dL (32.0-36.0); MEAN CORPUSCULAR HEMOGLOB 29.5 pg (26.0-34.0); MEAN CORPUSCULAR VOLUME 85.6 fL (80-100); MEAN PLATELET VOLUME 10.7 fL (9.2-13.0); MONOCYTES 8.8 %; NEUTROPHILS 58.9 %; NEUTROPHILS ABSOLUTE 5.35 10/3/uL (2.02-8.40); RBC DISTRIBUTION WIDTH 17.3 % (12.0-16.0); RED CELL COUNT 3.19 10/6/uL (4.0-5.6)
[2017-04-29 02:28] LABS: HEMATOCRIT 27.3 % (36.0-48.0); HEMOGLOBIN 9.4 g/dL (12.0-16.0); MANUAL DIFF NO %; PLATELET COUNT 124 10/3/uL (150-400); WHITE BLOOD CELLS 9.1 10/3/uL (4.5-10.5)
[2017-04-29 02:34] LABS: INTERNATIONAL NORMAL RATI 1.4 UNITS (-)
[2017-04-29 02:36] LABS: PARTIAL THROMBO TIME 103.5 SEC (22.5-37.2)
[2017-04-29 02:38] LABS: ALBUMIN 2.4 G/DL (3.5-5.0); BUN (BLOOD UREA NITROGEN) 18 MG/DL (6-23); CHLORIDE, SERUM 111 MMOL/L (96-112); CO2 (CARBON DIOXIDE) 26 MMOL/L (24-34); CREATININE 0.96 MG/DL (0.55-1.02); GFR AFRICAN AMERICAN 75 ML/MIN (>=60); GFR NON AFRICAN AMERICAN 64 ML/MIN (>=60); PHOSPHORUS, SERUM 2.3 MG/DL (2.5-4.5); POTASSIUM, SERUM 3.5 MMOL/L (3.5-5.3); SODIUM, SERUM 142 MMOL/L (135-148)
[2017-04-29 02:41] LABS: GLUCOSE, SERUM 122 MG/DL (60-99)
[2017-04-29 13:48] LABS: HEPARIN-INDUCED PLATELET AB POSITIVE (NEGATIVE)
[2017-04-29 14:31] LABS: PHOSPHORUS, SERUM 2.1 MG/DL (2.5-4.5); POTASSIUM, SERUM 3.7 MMOL/L (3.5-5.3)
[2017-04-30 06:11] LABS: BASOPHILS 0 %; EOSINOPHILS 3.6 %; EOSINOPHILS ABSOLUTE 0.26 10/3/uL (0.0-0.53); HEMATOCRIT 27.1 % (36.0-48.0); HEMOGLOBIN 9.2 g/dL (12.0-16.0); IMMATURE GRANULOCYTES 0.3 %; IMMATURE GRANULOCYTES ABSOLUTE 0.02 10/3/uL (0.0-0.11); LYMPHOCYTES 19.4 %; LYMPHOCYTES ABSOLUTE 1.42 10/3/uL (0.67-4.30); MEAN CORPUS HGB CONC 33.9 g/dL (32.0-36.0); MEAN CORPUSCULAR HEMOGLOB 29.4 pg (26.0-34.0); MEAN CORPUSCULAR VOLUME 86.6 fL (80-100); MEAN PLATELET VOLUME 11.5 fL (9.2-13.0); MONOCYTES 6.3 %; MONOCYTES ABSOLUTE 0.46 10/3/uL (0.21-1.20); NEUTROPHILS 70.4 %; NEUTROPHILS ABSOLUTE 5.16 10/3/uL (2.02-8.40); PLATELET COUNT 151 10/3/uL (150-400); RBC DISTRIBUTION WIDTH 17.2 % (12.0-16.0); RED CELL COUNT 3.13 10/6/uL (4.0-5.6); WHITE BLOOD CELLS 7.3 10/3/uL (4.5-10.5)
[2017-04-30 06:14] LABS: MANUAL DIFF NO %
[2017-04-30 07:01] LABS: ALBUMIN 2.2 G/DL (3.5-5.0); CALCIUM, SERUM 8.3 MG/DL (8.5-10.4); CHLORIDE, SERUM 111 MMOL/L (96-112); CO2 (CARBON DIOXIDE) 25 MMOL/L (24-34); CREATININE 0.72 MG/DL (0.55-1.02); GFR AFRICAN AMERICAN 105 ML/MIN (>=60); GFR NON AFRICAN AMERICAN 91 ML/MIN (>=60); GLUCOSE, SERUM 133 MG/DL (60-99); PHOSPHORUS, SERUM 2.7 MG/DL (2.5-4.5); SODIUM, SERUM 145 MMOL/L (135-148)
[2017-04-30 07:07] LABS: BUN (BLOOD UREA NITROGEN) 12 MG/DL (6-23)
[2017-05-01 06:46] LABS: BASOPHILS 0.2 %; BASOPHILS ABSOLUTE 0.01 10/3/uL (0.0-0.16); EOSINOPHILS 4.2 %; EOSINOPHILS ABSOLUTE 0.22 10/3/uL (0.0-0.53); HEMATOCRIT 27.8 % (36.0-48.0); HEMOGLOBIN 9.4 g/dL (12.0-16.0); IMMATURE GRANULOCYTES 0.4 %; IMMATURE GRANULOCYTES ABSOLUTE 0.02 10/3/uL (0.0-0.11); LYMPHOCYTES 28.6 %; LYMPHOCYTES ABSOLUTE 1.51 10/3/uL (0.67-4.30); MEAN CORPUS HGB CONC 33.8 g/dL (32.0-36.0); MEAN CORPUSCULAR HEMOGLOB 29.2 pg (26.0-34.0); MEAN CORPUSCULAR VOLUME 86.3 fL (80-100); MEAN PLATELET VOLUME 10.7 fL (9.2-13.0); MONOCYTES 6.1 %; MONOCYTES ABSOLUTE 0.32 10/3/uL (0.21-1.20); NEUTROPHILS 60.5 %; PLATELET COUNT 165 10/3/uL (150-400); RBC DISTRIBUTION WIDTH 17.1 % (12.0-16.0); RED CELL COUNT 3.22 10/6/uL (4.0-5.6); WHITE BLOOD CELLS 5.3 10/3/uL (4.5-10.5)
[2017-05-01 06:51] LABS: MANUAL DIFF NO %
[2017-05-01 07:02] LABS: ALBUMIN 2.3 G/DL (3.5-5.0); BUN (BLOOD UREA NITROGEN) 8 MG/DL (6-23); CALCIUM, SERUM 8.6 MG/DL (8.5-10.4); CHLORIDE, SERUM 109 MMOL/L (96-112); CO2 (CARBON DIOXIDE) 28 MMOL/L (24-34); CREATININE 0.73 MG/DL (0.55-1.02); GFR AFRICAN AMERICAN 104 ML/MIN (>=60); GFR NON AFRICAN AMERICAN 90 ML/MIN (>=60); GLUCOSE, SERUM 144 MG/DL (60-99); PHOSPHORUS, SERUM 2.8 MG/DL (2.5-4.5); POTASSIUM, SERUM 3.6 MMOL/L (3.5-5.3); SODIUM, SERUM 144 MMOL/L (135-148)
[2017-05-01 23:35] LABS: UFH HIGH DOSE 100 IU/ML 2 (()); UFH LOW DOSE 0.1 IU/ML 7 (()); UFH LOW DOSE 0.5 IU/ML 6 (()); UFH SRA RESULT NEGATIVE (NEGATIVE)
[2017-08-20] MEDS ORDERED: NEUR300 PO (12:08)
[2017-08-20] MEDS ORDERED: ELIQUIS 5 MG TAB5 MG PO (12:09)
[2017-08-20] MEDS ORDERED: CYMBALTA30 PO (12:10)
== END 2017-05-01 19:46 | DRG 176 ==
LOC: ER 10:13 → 4SO 13:52 → 2SO 04-28 02:19 → CCU 04-28 03:15 → 2SO 04-29 12:54
PROVIDERS: Emergency Medicine; Family Medicine; Internal Medicine; Internal Medicine Critical Care Medicine; Orthopaedic Surgery Sports Medicine
DX: I26.92 Saddle embolus of pulmonary artery without acute cor pulmonale (principal); R57.9 Shock, unspecified; I24.8 Other forms of acute ischemic heart disease; I95.9 Hypotension, unspecified; D69.59 Other secondary thrombocytopenia; C50.919 Malignant neoplasm of unspecified site of unspecified female breast; E11.65 Type 2 diabetes mellitus with hyperglycemia; K50.90 Crohn's disease, unspecified, without complications; R55 Syncope and collapse; E66.01 Morbid (severe) obesity due to excess calories; R62.7 Adult failure to thrive; G89.4 Chronic pain syndrome; K21.9 Gastro-esophageal reflux disease without esophagitis; I36.1 Nonrheumatic tricuspid (valve) insufficiency; R09.02 Hypoxemia; D50.9 Iron deficiency anemia, unspecified; F32.9 Major depressive disorder, single episode, unspecified; T45.1X5A Adverse effect of antineoplastic and immunosuppressive drugs, initial encounter; Z17.0 Estrogen receptor positive status [ER+]; Z88.2 Allergy status to sulfonamides; Z93.3 Colostomy status
CPT/HCPCS: 36600; 70450; 71010; 71275; 80048; 80053; 80069; 81001; 82330; 82550; 82553; 82803; 82947; 82962; 83036; 83540; 83550; 83735; 84100; 84132; 84295; 84443; 84484; 85014; 85018; 85025; 85610; 85730; 86022; 86022-59; 87040; 87641; 92950; 93005; 93306; 93970; 97116-GP; 97161-GP; 97164-GP; 99285; A9270-GY; G8978-CJ-GP; G8978-CK-GP; G8979-CI-GP; G8979-CJ-GP; J2405; J2997; J3475; Q9967